=== PATIENT | male | born 1995 | race Caucasian/White ===

== ENCOUNTER 2021-09-23 08:00 | Outpatient (CLI) | payer OTHER ==
--- NOTE | 2021-09-23 17:19 | XRAY Report ---
PROCEDURE: Wrist 4 View LT INDICATIONS: LEFT WRIST PAIN TECHNIQUE: 4 views of the wrist were acquired. COMPARISON: None FINDINGS: Bones: No displaced fracture. No dislocation. Soft tissues: No suspicious calcifications. IMPRESSION: No displaced fracture or dislocation identified. If there is high clinical concern for fracture, foll ow-up radiographs may be obtained in 7-10 days. Reviewed by: Spenecr Montgomery MD on 09/23/2021 5:17 PM PDT Approved by: Spencer Montgomery MD on 09/23/2021 5:17 PM PDT Station ID: [id number]
== END 2021-09-23 23:59 | disposition home or self-care (01) ==
LOC: DI.S 08:00
PROVIDERS: ATTEND Registered Nurse
DX: M25.532 Pain in left wrist (principal)